=== PATIENT | male | born 1985 | race Caucasian/White ===

== ENCOUNTER 2017-01-17 19:33 | Emergency (ER) | payer OTHER ==
[~2017-01-17] VITALS: Ht 183.5 cm; Wt 72.6 kg
[~2017-01-17 19:33] MED LIST: ATIVAN1 MG ORAL; BENTYL10 MG ORAL; DONNATAL E16.2 MG/1 PO; DONNATAL E16.2 MG/2 PO; IBUPROFEN600 MG ORAL; LIDOCAINE VISC100 ML MT; LIDOCAINE VISC100 ML PO; LIDOCAINE VISCO20 ML *; LIDOCAINE VISCO20 ML PO; MAALOX MAXIMUM355 M1 PO; MYLANTA II30 ML GT; MYLANTA II30 ML ORAL; MYLANTA II30 ML PO; NKM; NORCO 5-325 TA1 EACH ORAL; OMEPRAZOLE40 M1 ORAL; RANITIDINE HCL150 MG ORAL; [UNRECOGNIZED DRUG - OTHER] PO
[2017-01-17 19:40] VITALS: BP 122/74
[2017-01-17 20:00] VITALS: BP 125/72
[2017-01-17 20:05] VITALS: BP 125/72
--- NOTE | 2017-01-18 15:27 | Emergency Room Report ---
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 No smoking, drugs, ETOH No history of asthma, COPD Multiple visits here for similar concern - strong history/concern for anxiety patient stating "just get me an EKG and I'm outta here..." Allergies: Coded Allergies: No Known Allergies (Unverified , 12/08/15) Patient History Past Medical History: none Past Surgical History: none Pertinent Family History: none Social History: Denies: smoking, alcohol use, drug use Immunizations: UTD Reviewed Nursing Documentation: PMH: Agreed, PSxH: Agreed Nursing Documentation-PMH Past Medical History: No History, Except For Hx Cardiac Problems: No Hx Hypertension: No Hx Pacemaker: No Hx Asthma: No Hx COPD: No Hx Diabetes: No Hx Cancer: No Hx Gastrointestinal Problems: Yes - Acid reflux Hx Dialysis: No Hx Neurological Problems: No Hx Cerebrovascular Accident: No Hx Seizures: No Review of Systems All Other Systems: negative except mentioned in HPI Physical Exam Vital Signs Date Time Temp Pulse Resp B/P (MAP) Pulse Ox O2 Delivery O2 Flow Rate FiO2 01/17/17 19:35 97.9 81 20 129/82 97 Room Air Sp02 EP Interpretation: reviewed, normal General Appearance: normal inspection, well appearing, no apparent distress, alert, GCS 15, non-toxic Head: normocephalic, atraumatic Eyes: bilateral eye PERRL, bilateral eye EOMI ENT: normal ENT inspection, hearing grossly normal, normal voice Neck: normal inspection, full range of motion, supple, no bony tend Respiratory: normal inspection, lungs clear, normal breath sounds, no respiratory distress, no retraction, no wheezing, chest symmetrical, palpation of chest normal Cardiovascular #1: regular rate, rhythm, no edema Gastrointestinal: normal inspection, normal bowel sounds, non tender, soft, no guarding, no hernia Genitourinary: no CVA tenderness Musculoskeletal: normal inspection, back normal, normal range of motion, Adan' s Sign negative Neurologic: normal inspection, alert, oriented x3, responsive, entry table operator III-XII nml as tested, motor strength/tone normal, speech normal Psychiatric: normal inspection, judgement/insight normal, mood/affect normal Skin: normal inspection, normal color, no rash Medical Decision Making Diagnostic Impression: Primary Impression: Chest pain Qualified Codes: R07.89 - Other chest pain ER Course Chest pain for 2-3 days No CAD risk factors Unlikely ACS or PE or dissection given well appearance, duration fo symptoms, no CAD risk factors ECG is NSR, no ischemia. Advised patient ECG is just a screening test and lab work/CXR would provide additional info for risk stratifying but patient refuses to stay for additional evaluation Advised to return for worsening concerning symptoms DC home EKG Diagnostic Results Rate: normal Rhythm: NSR ST Segments: no acute changes ASA given to the pt in ED: No Last Vital Signs Date Time Temp Pulse Resp B/P (MAP) Pulse Ox O2 Delivery O2 Flow Rate FiO2 01/17/17 20:05 98.1 74 15 125/72 100 Room Air Status: improved Disposition: HOME, SELF-CARE Condition: Improved Referrals: [facility]ERRIN (PCP) Patient Instructions: Nonspecific Chest Pain TERENCE VIVAR M.D. Jan 18, 2017 15:26
== END 2017-01-17 20:12 | disposition home or self-care (01) ==
LOC: EMR 20:11
DX: R07.89 Other chest pain (principal)
CPT/HCPCS: 93005; 99284

== ENCOUNTER 2017-04-15 15:15 | Emergency (ER) | payer OTHER ==
[~2017-04-15] VITALS: Ht 182.9 cm; Wt 72.6 kg
[2017-04-15] MEDS ORDERED: Dicyclomine HCl 10mg/5ml oral soln ORAL ONE (15:45)
[2017-04-15] MEDS ORDERED: Mylanta II UD 30ml ORAL ONE (15:45)
[2017-04-15] MEDS ORDERED: Lidocaine 2% Visc 15ml soln ORAL ONE (15:45)
[2017-04-15] MEDS ORDERED: PEPCID40 MG PO (16:34)
[2017-04-15] MEDS ORDERED: OMEPRAZOLE40 M1 ORAL (16:34)
--- NOTE | 2017-04-15 16:36 | Emergency Room Report ---
History of Present Illness General Chief Complaint: General Complaint Present Illness HPI 31 y/o male c/o acid reflux x 1 day. States he has a 4 year hx of acid reflux and he had a new onset of severe acid reflux last night and is requesting mylanta. States he has had multiple endoscopies in the past and was asymptomatic for the past 1 year. States sxs are worse with eating specific foods and has not taken anything for relief currently. Denies any current n/v/f /c/d, abd pain, back pain, neck pain, photophobia, phonophobia, CP, SOB or headache. Allergies: Coded Allergies: No Known Allergies (Unverified , 12/08/15) Patient History Past Medical History: see triage record Past Surgical History: none Pertinent Family History: none Immunizations: UTD Reviewed Nursing Documentation: PMH: Agreed, PSxH: Agreed Nursing Documentation-PMH Hx Cardiac Problems: No Hx Hypertension: No Hx Pacemaker: No Hx Asthma: No Hx COPD: No Hx Diabetes: No Hx Cancer: No Hx Gastrointestinal Problems: Yes - Acid reflux Hx Dialysis: No Hx Neurological Problems: No Hx Cerebrovascular Accident: No Hx Seizures: No Review of Systems All Other Systems: negative except mentioned in HPI Physical Exam Vital Signs Date Time Temp Pulse Resp B/P (MAP) Pulse Ox O2 Delivery O2 Flow Rate FiO2 04/15/17 15:17 97.9 104 20 114/74 99 Room Air Sp02 EP Interpretation: reviewed, normal General Appearance: no apparent distress, alert, GCS 15, non-toxic Head: normocephalic, atraumatic Eyes: bilateral eye normal inspection, bilateral eye PERRL ENT: hearing grossly normal, normal pharynx, no angioedema, normal voice Neck: full range of motion, supple/symm/no masses Respiratory: chest non-tender, lungs clear, normal breath sounds, speaking full sentences Cardiovascular #1: regular rate, rhythm, no edema Gastrointestinal: normal bowel sounds, non tender, soft, non-distended, no guarding, no rebound Musculoskeletal: back normal, gait/station normal, normal range of motion Neurologic: alert, oriented x3, responsive, motor strength/tone normal, sensory intact, speech normal Skin: normal color, no rash, warm/dry, well hydrated Medical Decision Making PA Attestation Dr. Rowe my supervising physician with whom patient management has been discussed with. Diagnostic Impression: Primary Impression: GERD (gastroesophageal reflux disease) Qualified Codes: K21.0 - Gastro-esophageal reflux disease with esophagitis ER Course Pt. presents to the ED c/o acid reflux Differential diagnosis includes appendicitis, [place], GERD, pancreatitis, allergic reaction, diverticulitis, gastroenteritis, abdominal hernia, pancreatitis, cholecystitis, nephrolithiasis, and testicular torsion. Vital signs: are WNL, pt. is afebrile H&PE are most consistent with GERD ORDERS: none required at this time, the diagnosis is clinical ED INTERVENTIONS: GI Cocktail with improvement of sxs. DISCHARGE: At this time pt. is stable for d/c to home. Will provide printed patient care instructions, and any necessary prescriptions. Care plan and follow up instructions have been discussed with the patient prior to discharge. Last Vital Signs Date Time Temp Pulse Resp B/P (MAP) Pulse Ox O2 Delivery O2 Flow Rate FiO2 04/15/17 15:17 97.9 104 20 114/74 99 Room Air Disposition: HOME, SELF-CARE Condition: Stable Scripts Famotidine (PEPCID) 40 Mg Tablet 40 MG PO DAILY, #14 TAB 0 Refills Prov: SABRY,TAMEEM P.A. 04/15/17 Omeprazole (OMEPRAZOLE) 40 Mg Capsule.dr 40 MG ORAL DAILY, #14 CAP Prov: SABALICIA,TAMEEM P.A. 04/15/17 Referrals: [facility],REFERRIN (PCP) Patient Instructions: Gastroesophageal Reflux Disease, Adult Additional Instructions: Take medication as directed. Patient instructed to stay well hydrated and to use a liquid diet and then progress to soft bland diet as tolerated before reverting back to a regular diet. Patient Education was given to the patient. Patient advised to return if symptoms do not improve or worsen over the past 4- 10 hours if irreretractible pain, rectal bleeding, or no BM to go to ER immediately. Advised patient to raise the head of your bed by 6 to 8 inches ( for example, by putting blocks of wood under 2 legs of the bed or a Styrofoam wedge under the mattress). Avoid foods that make your symptoms worse (examples include coffee, chocolate, alcohol, peppermint, and fatty foods). Cut down on the amount of alcohol you drink. Stop smoking, if you smoke. Eat a bunch of small meals each day, rather than 2 or 3 big meals. Avoid lying down for 3 hours after a meal Antacids and surface acting agents can relieve mild symptoms , but they work only for a short time. Histamine blockers are stronger and last longer than antacids and surface acting agents. You can buy antacids and most histamine blockers without a prescription. BEE LOPEZ Apr 15, 2017 16:36
[2017-04-15 16:50] VITALS: BP 125/80
== END 2017-04-15 16:50 | disposition home or self-care (01) ==
LOC: EMR 15:52
DX: K21.9 Gastro-esophageal reflux disease without esophagitis (principal)
CPT/HCPCS: 99284

== ENCOUNTER 2017-05-23 21:17 | Emergency (ER) | payer OTHER ==
[~2017-05-23] VITALS: Ht 182.9 cm; Wt 72.6 kg
[~2017-05-23 21:17] MED LIST changes: +PEPCID40 MG PO
[2017-05-23 21:35] VITALS: BP 119/75
[2017-05-23] MEDS ORDERED: LIDOCAINE VISCO20 ML PO (22:14)
[2017-05-23] MEDS ORDERED: MYLANTA II30 ML PO (22:14)
[2017-05-23] MEDS ORDERED: Dicyclomine HCl 10mg/5ml oral soln ORAL ONE (22:15)
[2017-05-23] MEDS ORDERED: Mylanta II UD 30ml ORAL ONE (22:15)
[2017-05-23] MEDS ORDERED: Lidocaine 2% Visc 15ml soln ORAL ONE (22:15)
[2017-05-23 22:28] VITALS: BP 119/75
--- NOTE | 2017-05-23 23:58 | Emergency Room Report ---
History of Present Illness General Chief Complaint: General Complaint Source: Patient Present Illness HPI 31YOM walk-in with throat burning/pain, states that its his "acid reflux" acting up. Requesting "GI Cocktail" Patient has been here many times prior for similar complaints - was given GI cocktail Rx as well Denies abd pain, nausea/vomiting, diarrhea Denies chest pain, SOB Deneis sick contacts Allergies: Coded Allergies: No Known Allergies (Unverified , 12/08/15) Patient History Past Medical History: GERD Past Surgical History: none Pertinent Family History: none Social History: Denies: smoking, alcohol use, drug use Immunizations: UTD Reviewed Nursing Documentation: PMH: Agreed, PSxH: Agreed Nursing Documentation-PMH Hx Cardiac Problems: No Hx Hypertension: No Hx Pacemaker: No Hx Asthma: No Hx COPD: No Hx Diabetes: No Hx Cancer: No Hx Gastrointestinal Problems: Yes - Acid reflux Hx Dialysis: No Hx Neurological Problems: No Hx Cerebrovascular Accident: No Hx Seizures: No Review of Systems All Other Systems: negative except mentioned in HPI Physical Exam Vital Signs Date Time Temp Pulse Resp B/P (MAP) Pulse Ox O2 Delivery O2 Flow Rate FiO2 05/23/17 21:27 97.3 66 16 119/75 97 Room Air Sp02 EP Interpretation: reviewed, normal General Appearance: normal inspection, well appearing, no apparent distress, alert, GCS 15, non-toxic Head: normocephalic, atraumatic Eyes: bilateral eye PERRL, bilateral eye EOMI ENT: normal ENT inspection, hearing grossly normal, normal pharynx, no angioedema, normal voice, TMs + canals normal, uvula midline, moist mucus membranes Neck: normal inspection, full range of motion, supple, thyroid normal, no meningismus, no bony tend Respiratory: normal inspection, lungs clear, normal breath sounds, no rhonchi, no respiratory distress, no retraction, no accessory muscle use, no wheezing, speaking full sentences Cardiovascular #1: regular rate, rhythm, no edema, no JVD, normal capillary refill Gastrointestinal: normal inspection, normal bowel sounds, non tender, soft, no mass, no peritonitis, non-distended, no guarding, no hernia, no pulsatile mass Genitourinary: no CVA tenderness Musculoskeletal: normal inspection, back normal, normal range of motion, no calf tenderness, pelvis stable, Adan's Sign negative Neurologic: normal inspection, alert, oriented x3, responsive, insecticide expert III-XII nml as tested, motor strength/tone normal, cerebellar normal, normal gait, speech normal Psychiatric: normal inspection, judgement/insight normal, mood/affect normal, no suicidal/homicidal ideation, no delusions Skin: normal inspection, normal color, no rash Lymphatic: normal inspection, no adenopathy Medical Decision Making Diagnostic Impression: Primary Impression: Dysphagia Qualified Codes: R13.10 - Dysphagia, unspecified ER Course Vital signs stable, afebrile Abdomen nonfocal Improve symptoms after GI cocktail including viscous lidocaine Is given prescription for viscous light on Maalox as requested advised PMD followup for GI referral for endoscopy given how many times he's been here for GERD, acid reflux ER course: Patient has remained stable during ED stay. Disposition: Patient is to be discharged to home. Prescriptions given are maalox, viscous lido Patient is instructed to follow up with their primary care doctor within 5 days. Strict return precautions discussed with patient such as fever, chills, worsening/severe pain, nausea, vomiting, which may indicate severe illness. Patient verbalizes understanding and agrees with plan. Please note that this Emergency Department Report was dictated using [employer] repairer technology software, occasionally this can lead to erroneous entry secondary to interpretation by the dictation equipment Last Vital Signs Date Time Temp Pulse Resp B/P (MAP) Pulse Ox O2 Delivery O2 Flow Rate FiO2 05/23/17 22:28 97.3 66 16 119/75 97 Room Air Status: improved Disposition: HOME, SELF-CARE Condition: Improved Scripts Lidocaine HCl 2% Viscous (Lidocaine HCl 2% Viscous) 100 Ml Solution 10 ML PO Q6HR Y for throat pain, #120 ML mix with water equal parts Prov: TERENCE VIVAR M.D. 05/23/17 Al Hydroxide/mg Hydroxide (Mag-Al Plus Suspension) 30 Ml Oral.susp 30 ML PO Q6HR, #420 ML Prov: TERENCE VIVAR M.D. 05/23/17 Patient Instructions: Dysphagia TERENCE VIVAR M.D. May 23, 2017 23:58
== END 2017-05-23 22:28 | disposition home or self-care (01) ==
LOC: EMR 21:40
DX: R13.10 Dysphagia, unspecified (principal); K21.9 Gastro-esophageal reflux disease without esophagitis
CPT/HCPCS: 99283

== ENCOUNTER 2017-07-12 06:21 | Emergency (ER) | payer OTHER ==
[~2017-07-12] VITALS: Ht 182.9 cm; Wt 72.6 kg
[2017-07-12] MEDS ORDERED: LIDOCAINE VISCO20 ML PO (06:37)
--- NOTE | 2017-07-12 06:44 | Emergency Room Report ---
History of Present Illness General Chief Complaint: General Complaint Present Illness HPI Patient is a 31-year-old male who presented after increased difficulty swallowing. Patient reports having increased tightness to his throat. Patient prior history of similar symptoms. Patient has multiple prior ER visits for similar symptoms. He has prior history of anxiety as well as as esophageal stricture. He denies any difficulty breathing or cough. He had not been vomiting. Allergies: Coded Allergies: No Known Allergies (Unverified , 12/08/15) Patient History Past Medical History: see triage record Reviewed Nursing Documentation: PMH: Agreed, PSxH: Agreed Nursing Documentation-PMH Hx Cardiac Problems: No Hx Hypertension: No Hx Pacemaker: No Hx Asthma: No Hx COPD: No Hx Diabetes: No Hx Cancer: No Hx Gastrointestinal Problems: Yes - Acid reflux Hx Dialysis: No Hx Neurological Problems: No Hx Cerebrovascular Accident: No Hx Seizures: No Review of Systems All Other Systems: negative except mentioned in HPI Physical Exam Vital Signs Date Time Temp Pulse Resp B/P (MAP) Pulse Ox O2 Delivery O2 Flow Rate FiO2 07/12/17 06:26 98.0 59 16 121/69 96 Room Air 98.1 General Appearance: well appearing, no apparent distress, alert, GCS 15 Head: normocephalic, atraumatic ENT: hearing grossly normal, normal voice Neck: full range of motion, supple Respiratory: no respiratory distress, speaking full sentences Musculoskeletal: no calf tenderness Neurologic: normal gait Psychiatric: mood/affect normal Skin: no rash Medical Decision Making Diagnostic Impression: Primary Impression: GERD (gastroesophageal reflux disease) ER Course Patient presented for throat discomfort. Differential diagnosis included was not limited to esophageal stricture, gastric cancer, reflux among others. Patient has a benign exam and does not appear to require any further imaging or laboratory testing at this time patient. patient was advised to follow-up with his GI physician. The patient is advised to follow up with primary care doctor in 1-2 days. Patient is advised to return if any worsening condition or if any changes in status that are concerning. This report is dictated with [employer] senior web engineer software which may occasionally lead to discrepancies related to use of this software. Last Vital Signs Date Time Temp Pulse Resp B/P (MAP) Pulse Ox O2 Delivery O2 Flow Rate FiO2 07/12/17 06:26 98.0 59 16 121/69 96 Room Air 98.1 Status: improved Disposition: HOME, SELF-CARE Condition: Stable Scripts Lidocaine HCl 2% Viscous (Lidocaine HCl 2% Viscous) 100 Ml Solution 10 ML PO Q6HR Y for throat pain, #120 ML mix with water equal parts Prov: Vladimir Shanks 07/12/17 Referrals: [facility],REFERRING (PCP) Patient Instructions: Dysphagia Vladimir Shanks Jul 12, 2017 06:44
[2017-07-12] MEDS ORDERED: Dicyclomine HCl 10mg/5ml oral soln ORAL ONE (06:45)
[2017-07-12] MEDS ORDERED: Lidocaine 2% Visc 15ml soln ORAL ONE (06:45)
[2017-07-12 06:46] VITALS: BP 120/68
[2017-07-12 06:48] VITALS: BP 120/68
== END 2017-07-12 06:48 | disposition home or self-care (01) ==
LOC: EMR 06:36
DX: K21.9 Gastro-esophageal reflux disease without esophagitis (principal)
CPT/HCPCS: 99283

== ENCOUNTER 2017-07-20 04:57 | Emergency (ER) | payer OTHER ==
[~2017-07-20] VITALS: Ht 182.9 cm; Wt 72.6 kg
[2017-07-20 05:10] VITALS: BP 116/78
[2017-07-20] MEDS ORDERED: PEPCID20 MG ORAL (05:19)
--- NOTE | 2017-07-20 05:19 | Emergency Room Report ---
History of Present Illness General Chief Complaint: Sore Throat Source: Patient Present Illness HPI Is a 31-year-old male with history of anxiety and reflux. He also claims he has strictures. He's been here numerous times for the same complaint. He usually come in and said that his throat was closing off and only a GI cocktail will help. When he tried Mylanta as an outpatient is not helping. No fever chills but no nausea no vomiting. Denies any other complaint. Similar symptoms in the past. No pain. No nausea no vomiting no diarrhea. Allergies: Coded Allergies: No Known Allergies (Unverified , 12/08/15) Patient History Past Medical History: see triage record, old chart reviewed Past Surgical History: other Pertinent Family History: none Social History: Denies: smoking Immunizations: other Reviewed Nursing Documentation: PMH: Agreed; PSxH: Agreed Nursing Documentation-PMH Hx Cardiac Problems: No Hx Hypertension: No Hx Pacemaker: No Hx Asthma: No Hx COPD: No Hx Diabetes: No Hx Cancer: No Hx Gastrointestinal Problems: Yes - Acid reflux Hx Dialysis: No Hx Neurological Problems: No Hx Cerebrovascular Accident: No Hx Seizures: No Review of Systems Eye: Denies: eye pain, blurred vision ENT: Denies: ear pain, nose congestion, throat swelling Respiratory: Denies: cough, shortness of breath Cardiovascular: Denies: chest pain, palpitations Gastrointestinal: Denies: abdominal pain, diarrhea, nausea, vomiting Musculoskeletal: Denies: back pain, joint pain Skin: Denies: rash Neurological: Denies: headache, numbness Endocrine: Denies: increased thirst, increased urine Hematologic/Lymphatic: Denies: easy bruising All Other Systems: negative except mentioned in HPI Physical Exam Vital Signs Date Time Temp Pulse Resp B/P (MAP) Pulse Ox O2 Delivery O2 Flow Rate FiO2 07/20/17 05:00 97.4 61 18 116/78 98 Room Air 97.3 vitals normal Sp02 EP Interpretation: reviewed, normal General Appearance: well appearing, no apparent distress, alert Head: normocephalic, atraumatic Eyes: bilateral eye PERRL, bilateral eye EOMI ENT: hearing grossly normal, normal pharynx Neck: full range of motion, supple, no meningismus Respiratory: chest non-tender, lungs clear, normal breath sounds Cardiovascular #1: regular rate, rhythm, no murmur Gastrointestinal: normal bowel sounds, non tender, no mass, no organomegaly, no bruit, non-distended Musculoskeletal: back normal, gait/station normal, normal range of motion Psychiatric: mood/affect normal Skin: warm/dry Medical Decision Making Diagnostic Impression: Primary Impression: Dysphagia Qualified Codes: R13.10 - Dysphagia, unspecified ER Course Patient presents with symptoms of dysphasia/reflux. I suspect this is more of a psychological issue rather than organic issue. We'll discharge home. No evidence of an acute abdomen. Last Vital Signs Date Time Temp Pulse Resp B/P (MAP) Pulse Ox O2 Delivery O2 Flow Rate FiO2 07/20/17 05:00 97.4 61 18 116/78 98 Room Air 97.3 Status: unchanged Disposition: HOME, SELF-CARE Condition: Stable Scripts Famotidine (PEPCID) 20 Mg Tablet 20 MG ORAL DAILY, #30 TAB 0 Refills Prov: BRAIN ARANDA M.D. 07/20/17 Additional Instructions: Follow-up with your DrBeverly in 7 days. Return if symptom worsen. BRAIN ARANDA M.D. Jul 20, 2017 05:19
[2017-07-20 05:27] VITALS: BP 116/78
== END 2017-07-20 05:25 | disposition home or self-care (01) ==
LOC: EMR 05:16
DX: R13.10 Dysphagia, unspecified (principal); K21.9 Gastro-esophageal reflux disease without esophagitis
CPT/HCPCS: 99283

== ENCOUNTER 2017-07-22 17:52 | Emergency (ER) | payer OTHER ==
[~2017-07-22] VITALS: Ht 182.9 cm; Wt 70.8 kg
[~2017-07-22 17:52] MED LIST changes: +PEPCID20 MG ORAL
--- NOTE | 2017-07-22 18:24 | Emergency Room Report ---
History of Present Illness General Chief Complaint: Chest Pain Source: Patient Present Illness HPI 31-year-old male presents to the emergency department requesting EKG and stating that he had episode of chest pain earlier today. Patient states that right now he isn't having the pain as bad as it was he reports that at approximately 2 in the morning he had 9 out of 10 in severity left-sided chest/ pectoral/shoulder pain. 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 Patient denies history of cardiac disease. Denies drug use denies recent travel denies shortness of breath or lower extremity swelling. He denies recent URI. Denies Palpitations, LOC, AMS, dizziness, Changes in Vision, Sensation, paresthesias , or a sudden severe headache. Allergies: Coded Allergies: No Known Allergies (Unverified , 12/08/15) Patient History Past Medical History: see triage record Past Surgical History: none Pertinent Family History: none Reviewed Nursing Documentation: PMH: Agreed; PSxH: Agreed Nursing Documentation-PMH Past Medical History: No History, Except For Hx Cardiac Problems: No Hx Hypertension: No Hx Pacemaker: No Hx Asthma: No Hx COPD: No Hx Diabetes: No Hx Cancer: No Hx Gastrointestinal Problems: Yes - Acid reflux Hx Dialysis: No Hx Neurological Problems: No Hx Cerebrovascular Accident: No Hx Seizures: No Review of Systems All Other Systems: negative except mentioned in HPI Physical Exam Vital Signs Date Time Temp Pulse Resp B/P (MAP) Pulse Ox O2 Delivery O2 Flow Rate FiO2 07/22/17 18:08 97.9 88 22 130/86 94 Room Air 97.9 Sp02 EP Interpretation: reviewed, normal General Appearance: no apparent distress, alert, GCS 15, non-toxic Head: normocephalic, atraumatic ENT: hearing grossly normal, normal voice Neck: full range of motion Respiratory: lungs clear, normal breath sounds, no respiratory distress, no accessory muscle use, no wheezing, speaking full sentences Cardiovascular #1: regular rate, rhythm, no edema Gastrointestinal: non tender, soft, non-distended Genitourinary: deferred Musculoskeletal: back normal, gait/station normal, normal range of motion, tender - mild ttp to Deep palpation of the left pectoral area. Neurologic: alert, oriented x3, responsive, motor strength/tone normal, sensory intact, speech normal, grossly normal Psychiatric: anxious, other - suspect psychological disorder. overly concerned about symptoms and repeating questions multiple times. Skin: normal color, warm/dry, well hydrated, rash - hyperpigmented plaquest on the anterior chest, not itchy. Medical Decision Making PA Attevation Dr. english is my supervising Physician whom patient management has been discussed with. Diagnostic Impression: Primary Impression: Chest wall pain Additional Impression: Anxiety ER Course 31-year-old male presents to the emergency department requesting EKG and stating that he had episode of chest pain earlier today. Patient states that right now he isn't having the pain as bad as it was he reports that at approximately 2 in the morning he had 9 out of 10 in severity left-sided chest/ pectoral/shoulder pain. 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 Patient denies history of cardiac disease. Denies drug use denies recent travel denies shortness of breath or lower extremity swelling. He denies recent URI. Denies Palpitations, LOC, AMS, dizziness, Changes in Vision, Sensation, paresthesias , or a sudden severe headache. Ddx considered but are not limited to DE, pneumonia, contusion, costochondritis , PE, ACS, Shoulder strain, Chest wall contusion. aortic dissection, pericarditis, anxiety. Review of this patient's chart shows that he regularly visits the ER for requests for EKG in addition to gastritis. Subsequent visits have been uneventful. It appears patient does not follow up with the primary care doctor I suspect psychological condition possibly hypochondriasis or drug use. Vital signs: are WNL, pt. is afebrile H&PE are most consistent with hypochondriasis/anxiety. will do EKG and Troponin to r/o emergent conditions. Pt. does not have cardiac RF's and multiple normal EKG's and testing done in ER in past. ORDERS: - EK NSR with ST changes possibly early repolarization nonspecific ST and T- wave abnormalities.--- Reviewed report of previous x-ray and shows early repolarization as well. -CMP: Unremarkable -CK-MB: WNL -CK: WNL -Troponin: 0.0 ED INTERVENTIONS: - Discussed EKG findings with patient and recommended blood work. Discussed with patient that no matter what he needs to follow-up with a communication spec as he reports to the emergency department frequently complaining of chest pain and asking for EKGs in addition to gastritis and always asking for lidocaine. -- I discussed With this patient that I recommend psychological evaluation. For anxiousness about his health. DISCHARGE: At this time pt. is stable for d/c to home. Will provide printed patient care instructions, and any necessary prescriptions. Care plan and follow up instructions have been discussed with the patient prior to discharge. Labs Test 07/22/17 19:05 Sodium Level 140 MMOL/L (136-145) Potassium Level 4.1 MMOL/L (3.5-5.1) Chloride Level 100 MMOL/L (98-107) Carbon Dioxide Level 33 MMOL/L (21-32) Anion Gap 7 mmol/L (5-15) Blood Urea Nitrogen 21 mg/dL (7-18) Creatinine 1.2 MG/DL (0.55-1.30) Estimat Glomerular Filtration Rate > 60 mL/min (>60) Glucose Level 95 MG/DL (74-106) Calcium Level 8.2 MG/DL (8.5-10.1) Total Creatine Kinase 136 U/L (26-308) Creatine Kinase MB 0.5 NG/ML (0.0-3.6) Creatine Kinase MB Relative Index 0.3 Troponin I 0.000 ng/mL (0.000-0.056) EKG Diagnostic Results EP Interpretation: Dr. sidhu Rate: normal - 71 BPM Rhythm: NSR ST Segments: other - non specific ST and T wave abnormalities. ASA given to the pt in ED: No PA Scribe Text This Interpretation was scribed by ALBER Robbins. Last Vital Signs Date Time Temp Pulse Resp B/P (MAP) Pulse Ox O2 Delivery O2 Flow Rate FiO2 07/22/17 18:08 97.9 88 22 130/86 94 Room Air 97.9 Disposition: HOME, SELF-CARE Condition: Stable Patient Instructions: Nonspecific Chest Pain Additional Instructions: Take any previously prescribed medications as directed. Follow up with a Primary Care Provider in 3-5 days, even if your symptoms have resolved. --Please review list of primary care clinics, if you do not already have a primary care provider Return sooner to ED if new symptoms occur, or current symptoms become worse. - Please note that this Emergency Department Report was dictated using [employer] manager interior design technology software, occasionally this can lead to erroneous entry secondary to interpretation by the dictation equipment. Sherrie Robbins Jul 22, 2017 18:24
[2017-07-22] MEDS ORDERED: NKM (18:35)
[2017-07-22 18:40] VITALS: BP 146/76
[2017-07-22 19:32] LABS: ANION GAP 7 mmol/L (5-15); BLOOD UREA NITROGEN 21 mg/dL (7-18); CALCIUM 8.2 MG/DL (8.5-10.1); CARBON DIOXIDE 33 MMOL/L (21-32); CHLORIDE 100 MMOL/L (98-107); CREATININE 1.2 MG/DL (0.55-1.30); POTASSIUM 4.1 MMOL/L (3.5-5.1); SODIUM 140 MMOL/L (136-145)
[2017-07-22 19:45] LABS: CKMB 0.5 NG/ML (0.0-3.6); CREATINE KINASE 136 U/L (26-308)
[2017-07-22 20:00] VITALS: BP 118/61
[2017-07-22 20:15] VITALS: BP 146/76
--- NOTE | 2017-07-24 18:14 | Cardiology Report ---
APPROVED REPORT EKG Measurement Heart [id number] Normal sinus rhythm with sinus arrhythmia ST elevation, consider early repolarization, pericarditis, or injury Nonspecific ST and T wave abnormality Abnormal ECG
== END 2017-07-22 20:15 | disposition home or self-care (01) ==
LOC: EMR 18:26
DX: R07.89 Other chest pain (principal); F41.9 Anxiety disorder, unspecified
CPT/HCPCS: 36415; 80048; 82550; 82553; 84484; 93005; 99283

== ENCOUNTER 2017-08-11 09:14 | Emergency (ER) | payer OTHER ==
[~2017-08-11] VITALS: Ht 182.9 cm; Wt 71.7 kg
[2017-08-11 09:42] VITALS: BP 143/82
[2017-08-11] MEDS ORDERED: PEPCID40 MG PO (09:45)
[2017-08-11] MEDS ORDERED: Lidocaine 2% Visc 15ml soln ORAL ONE (09:45)
[2017-08-11] MEDS ORDERED: Mylanta II UD 30ml ORAL ONE (09:45)
[2017-08-11] MEDS ORDERED: OMEPRAZOLE40 M1 ORAL (09:45)
[2017-08-11] MEDS ORDERED: ALUM-MAG HYDRO360 ML PO (09:45)
[2017-08-11 09:56] VITALS: BP 143/82
[2017-08-11] MEDS ORDERED: Dicyclomine HCl 10mg/5ml oral soln ORAL ONE (10:00)
--- NOTE | 2017-08-11 14:32 | Emergency Room Report ---
History of Present Illness General Chief Complaint: General Complaint Source: Patient Present Illness HPI Patient has a long history of gastritis. Patient has had multiple visits to emergency department. He is requesting GI cocktail. He states that he has bad gastritis again. He states that he does not take his Pepcid or Zantac because he doesn't think that it helped some. He has had endoscopies in the past and told that he might have gastritis. No other complaints are noted. No other modifying factors. No other associated signs and symptoms. No other complaints were noted. Allergies: Coded Allergies: No Known Allergies (Unverified , 12/08/15) Patient History Past Surgical History: none Pertinent Family History: none Social History: Denies: smoking, alcohol use, drug use Reviewed Nursing Documentation: PMH: Agreed; PSxH: Agreed Nursing Documentation-PMH Hx Cardiac Problems: No Hx Hypertension: No Hx Pacemaker: No Hx Asthma: No Hx COPD: No Hx Diabetes: No Hx Cancer: No Hx Gastrointestinal Problems: Yes - Acid reflux Hx Dialysis: No Hx Neurological Problems: No Hx Cerebrovascular Accident: No Hx Seizures: No Review of Systems All Other Systems: negative except mentioned in HPI Physical Exam Vital Signs Date Time Temp Pulse Resp B/P (MAP) Pulse Ox O2 Delivery O2 Flow Rate FiO2 08/11/17 09:20 97.6 58 17 143/82 98 Room Air 97.5 Sp02 EP Interpretation: reviewed, normal General Appearance: normal inspection, well appearing, no apparent distress, alert Head: atraumatic Eyes: bilateral eye normal inspection ENT: normal ENT inspection, hearing grossly normal, normal voice Neck: normal inspection, full range of motion, supple, no bony tend Respiratory: normal inspection, lungs clear, normal breath sounds, no respiratory distress, no retraction, no wheezing Cardiovascular #1: regular rate, rhythm, no edema Gastrointestinal: normal inspection, normal bowel sounds, soft, no guarding, no hernia, other - tender epigastrium Genitourinary: no CVA tenderness Musculoskeletal: normal inspection, back normal, normal range of motion Neurologic: normal inspection, alert, responsive, speech normal Psychiatric: normal inspection, judgement/insight normal, mood/affect normal Skin: normal inspection, normal color, no rash Medical Decision Making Diagnostic Impression: Primary Impression: GERD (gastroesophageal reflux disease) ER Course Patient presents to emergency department today complaining of abdominal discomfort. Differential considerations include gastritis, pancreatitis, cholecystitis is name a few. Patient's exam is consistent with gastric reflux. Patient was given a GI cocktail with significant improvement in symptoms. Patient was given a prescription for Pepcid and omeprazole. Recommend outpatient follow-up.Patient is advised to follow up with primary doctor in 2-3 days and return the emergency room for any worsening symptoms and as needed. Last Vital Signs Date Time Temp Pulse Resp B/P (MAP) Pulse Ox O2 Delivery O2 Flow Rate FiO2 08/11/17 09:56 97.6 58 17 143/82 98 Room Air 97.5 Status: improved Disposition: HOME, SELF-CARE Condition: Stable Scripts Mag Hydrox/Al Hydrox/Simeth (ALUM-MAG HYDROXIDE-SIMETH LIQ) 360 Ml Oral.susp 15 ML PO TID PRN for Pain Scale (3-5) for 7 Days, ML Prov: GINO OGDEN M.D. 08/11/17 Omeprazole (OMEPRAZOLE) 40 Mg Capsule.dr 40 MG ORAL DAILY for 14 Days, CAP Prov: GINO OGDEN M.D. 08/11/17 Famotidine (PEPCID) 40 Mg Tablet 40 MG PO DAILY, #14 TAB 0 Refills Prov: GINO OGDEN M.D. 08/11/17 Referrals: [facility],REFERRING (PCP) Patient Instructions: Gastritis, Adult, Gastroesophageal Reflux Disease, Adult GINO OGDEN M.D. Aug 11, 2017 14:32
== END 2017-08-11 09:57 | disposition home or self-care (01) ==
LOC: EMR 09:57
DX: K21.9 Gastro-esophageal reflux disease without esophagitis (principal)
CPT/HCPCS: 99284

== ENCOUNTER 2017-08-17 20:13 | Emergency (ER) | payer OTHER ==
[~2017-08-17] VITALS: Ht 182.9 cm; Wt 71.7 kg
[~2017-08-17 20:13] MED LIST changes: +ALUM-MAG HYDRO360 ML PO
[2017-08-17 20:30] VITALS: BP 119/74
[2017-08-17] MEDS ORDERED: Mylanta II UD 30ml ORAL ONE (20:30)
[2017-08-17] MEDS ORDERED: Lidocaine 2% Visc 15ml soln ORAL ONE (20:30)
[2017-08-17] MEDS ORDERED: Dicyclomine HCl 10mg/5ml oral soln ORAL ONE (20:30)
[2017-08-17] MEDS ORDERED: DICYCLOMIN10 MG/5 ML PO (20:51)
[2017-08-17] MEDS ORDERED: ALUM-MAG HYDRO360 ML PO (20:51)
[2017-08-17 20:54] VITALS: BP 119/74
--- NOTE | 2017-08-20 08:27 | Emergency Room Report ---
History of Present Illness General Chief Complaint: General Complaint Source: Patient, Medical Record Present Illness HPI 31-year-old male presents ED for evaluation. Complaining of throat tightness. Started yesterday. [place] [facility] [place] has been here multiple times for similar presentation. States he has "acid reflux" and states our GI cocktail helps him the most. States he has been to multiple doctors and multiple specialists for this. pain is sharp, 9 out of 10, nonradiating. Denies chest pain. Denies fevers or chills. Denies nausea or vomiting. No other aggravating relieving factors. Denies any other associated symptoms Allergies: Coded Allergies: No Known Allergies (Unverified , 12/08/15) Patient History Past Medical History: GERD Past Surgical History: none Pertinent Family History: none Social History: Denies: smoking, alcohol use, drug use Immunizations: UTD Reviewed Nursing Documentation: PMH: Agreed; PSxH: Agreed Nursing Documentation-PMH Past Medical History: No History, Except For Hx Cardiac Problems: No Hx Hypertension: No Hx Pacemaker: No Hx Asthma: No Hx COPD: No Hx Diabetes: No Hx Cancer: No Hx Gastrointestinal Problems: Yes - Acid reflux Hx Dialysis: No Hx Neurological Problems: No Hx Cerebrovascular Accident: No Hx Seizures: No Review of Systems All Other Systems: negative except mentioned in HPI Physical Exam Vital Signs Date Time Temp Pulse Resp B/P (MAP) Pulse Ox O2 Delivery O2 Flow Rate FiO2 08/17/17 20:19 97.5 65 16 119/74 97 Room Air 97.5 Sp02 EP Interpretation: reviewed, normal General Appearance: no apparent distress, alert, GCS 15, non-toxic Head: normocephalic, atraumatic Eyes: bilateral eye normal inspection, bilateral eye PERRL ENT: hearing grossly normal, normal pharynx, no angioedema, normal voice Neck: full range of motion, supple/symm/no masses Respiratory: chest non-tender, lungs clear, normal breath sounds, speaking full sentences Cardiovascular #1: regular rate, rhythm, no edema Cardiovascular #2: 2+ carotid (R), 2+ carotid (L), 2+ radial (R), 2+ radial (L) , 2+ dorsalis pedis (R), 2+ dorsalis pedis (L) Gastrointestinal: normal bowel sounds, non tender, soft, non-distended, no guarding, no rebound Rectal: deferred Genitourinary: normal inspection, no CVA tenderness Musculoskeletal: back normal, gait/station normal, normal range of motion, non- tender Neurologic: alert, oriented x3, responsive, motor strength/tone normal, sensory intact, speech normal Psychiatric: judgement/insight normal, memory normal, mood/affect normal, no suicidal/homicidal ideation Reflexes: 3+ bicep (R), 3+ bicep (L), 3+ tricep (R), 3+ tricep (L), 3+ knee (R) , 3+ knee (L) Skin: normal color, no rash, warm/dry, well hydrated Lymphatic: no adenopathy Medical Decision Making Diagnostic Impression: Primary Impression: GERD (gastroesophageal reflux disease) Qualified Codes: K21.9 - Gastro-esophageal reflux disease without esophagitis Additional Impression: Esophageal stricture ER Course Hospital Course 31-year-old male presents ED complaining of throat tightness differential diagnosis: gastritis, esophagitis, esophageal stricture Clinical course Patient placed on stretcher. On playground monitor. After initial history and physical I ordered GI cocktail Upon reassessment, patient states pain has improved. Patient declines further workup or imaging I feel this is a highly complex case requiring extensive working including EKG/ Rhythm strip, Xray/CT/US, Blood/urine lab work, repeat exams while in ED, and administration of strong opiates/narcotics for pain control, admission to hospital or close patient follow up. Diagnosis - GERD, esophageal stricture Stable and discharged to home with prescriptions for bentyl, maalox. Followup with PMD. Return to ED if symptoms recur or worsen Last Vital Signs Date Time Temp Pulse Resp B/P (MAP) Pulse Ox O2 Delivery O2 Flow Rate FiO2 08/17/17 20:54 97.5 64 16 119/74 97 Room Air 97.5 Status: improved Disposition: HOME, SELF-CARE Condition: Stable Scripts Dicyclomine HCl (Dicyclomine HCl) 10 Mg/5 Ml Solution 10 MG PO TID for 5 Days, ML Prov: Bang Rowe MD 08/17/17 Mag Hydrox/Al Hydrox/Simeth (ALUM-MAG HYDROXIDE-SIMETH LIQ) 360 Ml Oral.susp 15 ML PO TID PRN for Pain Scale (3-5) for 7 Days, ML Prov: Bang Rowe MD 08/17/17 Referrals: [facility],REFERRING (PCP) Patient Instructions: Bang Santana MD Aug 20, 2017 08:27
== END 2017-08-17 20:55 | disposition home or self-care (01) ==
LOC: EMR 20:37
DX: K21.9 Gastro-esophageal reflux disease without esophagitis (principal); K22.2 Esophageal obstruction
CPT/HCPCS: 99282

== ENCOUNTER 2017-08-30 06:43 | Emergency (ER) | payer OTHER ==
[~2017-08-30] VITALS: Ht 182.9 cm; Wt 71.7 kg
[~2017-08-30 06:43] MED LIST changes: +DICYCLOMIN10 MG/5 ML PO
[2017-08-30 07:16] VITALS: BP 135/98
--- NOTE | 2017-08-30 07:27 | Emergency Room Report ---
History of Present Illness General Chief Complaint: General Complaint Source: Patient Present Illness HPI 31-year-old healthy male Reports he wants dicyclomine because it helps his throat burning sensation he has had for 2 days He reports he had this multiple times and Bentyl is the only thing that helps He has tried omeprazole and ranitidine in the past He denies any skin rashes, shortness of breath, allergies, or obvious triggers He reports the last 2 days he felt this morning his throat This is typical of what he has had multiple times in the past He denies fevers, shortness of breath, abdominal pain, nausea, vomiting, any other complaints Allergies: Coded Allergies: No Known Allergies (Unverified , 12/08/15) Patient History Past Medical History: see triage record Reviewed Nursing Documentation: PMH: Agreed; PSxH: Agreed Nursing Documentation-PMH Past Medical History: No History, Except For Hx Cardiac Problems: No Hx Hypertension: No Hx Pacemaker: No Hx Asthma: No Hx COPD: No Hx Diabetes: No Hx Cancer: No Hx Gastrointestinal Problems: Yes - Acid reflux Hx Dialysis: No Hx Neurological Problems: No Hx Cerebrovascular Accident: No Hx Seizures: No Review of Systems All Other Systems: negative except mentioned in HPI Physical Exam Vital Signs Date Time Temp Pulse Resp B/P (MAP) Pulse Ox O2 Delivery O2 Flow Rate FiO2 08/30/17 07:10 97.5 59 16 135/98 100 Room Air 97.5 Sp02 EP Interpretation: reviewed, normal General Appearance: no apparent distress, alert, non-toxic Head: normocephalic Eyes: bilateral eye normal inspection, bilateral eye PERRL, bilateral eye EOMI ENT: normal ENT inspection, hearing grossly normal, normal pharynx, no angioedema, normal voice, moist mucus membranes Neck: normal inspection, full range of motion, supple, supple/symm/no masses Respiratory: chest non-tender, lungs clear, normal breath sounds, chest symmetrical, palpation of chest normal Cardiovascular #1: normal peripheral pulses, regular rate, rhythm Gastrointestinal: normal inspection, non tender, soft, no mass, no guarding, no rebound Rectal: deferred Genitourinary: normal inspection, no CVA tenderness Musculoskeletal: back normal, gait/station normal, normal range of motion, non- tender, no calf tenderness Neurologic: alert, responsive, dial screw assembler III-XII nml as tested, motor strength/tone normal, sensory intact, speech normal Psychiatric: judgement/insight normal, memory normal, mood/affect normal, no suicidal/homicidal ideation Skin: normal color, no rash, warm/dry, normal turgor Lymphatic: no adenopathy Medical Decision Making Reaction to Intervention: No change Diagnostic Impression: Primary Impression: Sore throat ER Course Patient with likely GERD However, conventional therapy has failed him according to his history Dicyclomine seems to work, so I'll write him a prescription Examination is completely unremarkable of his throat and remainder of physical exam as well Last Vital Signs Date Time Temp Pulse Resp B/P (MAP) Pulse Ox O2 Delivery O2 Flow Rate FiO2 08/30/17 07:16 97.5 16 135/98 100 Room Air 97.5 08/30/17 07:10 59 Status: unchanged Disposition: HOME, SELF-CARE Condition: Stable SHANDRA GOLDEN M.D August 30, 2017 07:27
[2017-08-30] MEDS ORDERED: DICYCLOMINE HCL10 MG PO (07:29)
[2017-08-30 07:40] VITALS: BP 135/98
[2017-08-30] MEDS ORDERED: DICYCLOMIN10 MG/5 M1 PO (07:51)
== END 2017-08-30 07:40 | disposition home or self-care (01) ==
LOC: EMR 07:35
DX: J02.9 Acute pharyngitis, unspecified (principal); K21.9 Gastro-esophageal reflux disease without esophagitis
CPT/HCPCS: 99282

== ENCOUNTER 2017-09-14 19:32 | Emergency (ER) | payer OTHER ==
[~2017-09-14] VITALS: Ht 182.9 cm; Wt 71.7 kg
[~2017-09-14 19:32] MED LIST changes: +DICYCLOMIN10 MG/5 M1 PO; +DICYCLOMINE HCL10 MG PO
[2017-09-14] MEDS ORDERED: Lidocaine 2% Visc 15ml soln ORAL ONE (20:00)
[2017-09-14] MEDS ORDERED: Dicyclomine HCl 10mg/5ml oral soln ORAL ONE (20:00)
[2017-09-14] MEDS ORDERED: Mylanta II UD 30ml ORAL ONE (20:00)
[2017-09-14] MEDS ORDERED: ADVANCED ANTAC355 ML ORAL (20:02)
--- NOTE | 2017-09-14 20:04 | Emergency Room Report ---
History of Present Illness General Chief Complaint: Sore Throat Source: Patient Present Illness HPI 31-year-old male patient presents ER complaining of sore throat and constriction. Patient reports history of similar symptoms. Patient requesting a GI cocktail because "it relieves his pain symptoms". Patient reports he has been seen by GI specialist and had multiple endoscopies performed. Patient denies fever, chest pain, shortness of breath. Patient denies other acute symptoms at this time. reports history of GERD. Denies vomiting. Allergies: Coded Allergies: No Known Allergies (Unverified , 12/08/15) Patient History Past Medical History: see triage record Reviewed Nursing Documentation: PMH: Agreed; PSxH: Agreed Nursing Documentation-PMH Hx Cardiac Problems: No Hx Hypertension: No Hx Pacemaker: No Hx Asthma: No Hx COPD: No Hx Diabetes: No Hx Cancer: No Hx Gastrointestinal Problems: Yes - Acid reflux Hx Dialysis: No Hx Neurological Problems: No Hx Cerebrovascular Accident: No Hx Seizures: No Review of Systems All Other Systems: negative except mentioned in HPI Physical Exam Vital Signs Date Time Temp Pulse Resp B/P (MAP) Pulse Ox O2 Delivery O2 Flow Rate FiO2 09/14/17 19:34 97.9 81 18 125/76 98 Room Air 97.9 Sp02 EP Interpretation: reviewed, normal General Appearance: well appearing, no apparent distress, alert, GCS 15, non- toxic Head: normocephalic, atraumatic ENT: hearing grossly normal, normal pharynx, no angioedema, normal voice, TMs + canals normal, uvula midline, moist mucus membranes, other - no tonsillar exudates, no pharyngeal erythema Neck: full range of motion Respiratory: lungs clear, normal breath sounds, no rhonchi, no respiratory distress, no accessory muscle use, no wheezing, speaking full sentences Cardiovascular #1: regular rate, rhythm, no edema Musculoskeletal: back normal, digits/nails normal, gait/station normal, normal range of motion, non-tender Neurologic: alert, oriented x3, responsive, motor strength/tone normal, sensory intact Psychiatric: mood/affect normal Medical Decision Making PA Attestation Dr. Ruggiero is my supervising Physician whom patient management has been discussed with. Diagnostic Impression: Primary Impression: Throat pain ER Course Pt presents to ED c/o throat pain. DDX considered but are not limited to pharyngitis, laryngitis, URI, peritonsillar abscess, tonsillitis, esophageal stricture.. Low suspicion for peritonsillar abscess, no neck stiffness, no hot potato voice , no stridor. Does not require imaging at this time. VITAL SIGNS are WNL, patient is afebrile. Ordered GI cocktail. ER COURSE: patient seen in ER multiple times for similar symptoms in the past. Informed patient needs to follow up with his PCP for further treatment of symptoms. patient states that he will "come back to ER as times" as he wants to. informed patient he needs to follow with his PCP for further diagnosis of underlying etiology, ER cannot continue to provide medications. Will provide Rx for Mylanta medication. Patient reports feeling better following administration of medication patient able tolerate by mouth fluids while in the ER, talking without difficulty, no stridor, okay for outpatient treatment. patient has history of GERD, denies vomiting or reflux at this time. patient on reflux symptoms. take Tylenol for pain. DISCHARGE: Rx provided for Mylanta Salt water gargles Tylenol for pain and fever symptoms At this time pt is stable for d/c to home. Patient is resting comfortably, in no acute distress, nontoxic appearing, talking without difficulty. Will provide with patient care instructions and any necessary prescriptions. Patient to take medication as instructed. Care plan and follow-up instructions provided. Patient questions asked and answered. Patient instructed to follow-up with primary care provider in 3 - 5 days. ER precautions given. Patient instructed to return to ER immediately for any new or worsening of symptoms including but not limited to intractable vomiting, difficulty breathing, inability to eat. - Please note that this Emergency Department Report was dictated using [employer] aides teacher technology software, occasionally this can lead to erroneous entry secondary to interpretation by the dictation equipment. Last Vital Signs Date Time Temp Pulse Resp B/P (MAP) Pulse Ox O2 Delivery O2 Flow Rate FiO2 09/14/17 19:34 97.9 81 18 125/76 98 Room Air 97.9 Disposition: HOME, SELF-CARE Condition: Stable Scripts Mag Hydrox/Al Hydrox/Simeth* (ADVANCED ANTACID LIQUID*) 355 Ml Oral.susp 30 ML ORAL FOUR TIMES A DAY, #355 ML Prov: Luis E Armas 09/14/17 Patient Instructions: Esophageal Stricture, Sore Throat Additional Instructions: Followup with primary care provider in 3 -5 days. ER cannot continue to provide refills of medications, need to be seen and managed by primary care provider. Salt water gargles Take Tylenol for pain and fever symptoms Drink plenty of water. Take medications as directed. Patient questions asked and answered. ER precautions given, patient instructed to return to ER immediately for any new or worsening of symptoms including but not limited to intractable vomiting, difficulty breathing, inability to eat. Luis E Armas September 14, 2017 20:04
[2017-09-14 21:07] VITALS: BP 125/76
[2017-09-14 21:10] VITALS: BP 125/76
== END 2017-09-14 20:03 | disposition home or self-care (01) ==
LOC: EMR 20:00
DX: R07.0 Pain in throat (principal); K21.9 Gastro-esophageal reflux disease without esophagitis
CPT/HCPCS: 99283

== ENCOUNTER 2017-09-26 15:04 | Emergency (ER) | payer OTHER ==
[~2017-09-26] VITALS: Ht 182.9 cm; Wt 71.7 kg
[~2017-09-26 15:04] MED LIST changes: +ADVANCED ANTAC355 ML ORAL
[2017-09-26] MEDS ORDERED: ADVANCED ANTAC355 ML ORAL (15:37)
[2017-09-26] MEDS ORDERED: DICYCLOMIN10 MG/5 ML PO (15:42)
[2017-09-26] MEDS ORDERED: Dicyclomine HCl 10mg/5ml oral soln ORAL ONE (15:45)
[2017-09-26] MEDS ORDERED: Mylanta II UD 30ml ORAL ONE (15:45)
[2017-09-26] MEDS ORDERED: Lidocaine 2% Visc 15ml soln ORAL ONE (15:45)
[2017-09-26 15:59] VITALS: BP 116/63
[2017-09-26 16:01] VITALS: BP 116/63
--- NOTE | 2017-09-28 14:24 | Emergency Room Report ---
History of Present Illness General Chief Complaint: Abdominal Pain Source: Patient Present Illness HPI 31-year-old male presents ED complaining of sore throat. Patient is well-known to [facility] and has been here multiple times for this complaint. Patient has history of esophageal stricture. patient is coming for a GI cocktail. States he is having difficulty swallowing. Pain is sharp, 8 out of 10, nonradiating. Denies chest pain or shortness of breath. Denies any difficulty breathing. Denies nausea or vomiting. No other aggravating or relieving factors. Denies any other associated symptoms Allergies: Coded Allergies: No Known Allergies (Unverified , 12/08/15) Patient History Past Medical History: GERD Past Surgical History: none Pertinent Family History: none Social History: Denies: smoking, alcohol use, drug use Immunizations: UTD Reviewed Nursing Documentation: PMH: Agreed; PSxH: Agreed Nursing Documentation-PMH Hx Cardiac Problems: No Hx Hypertension: No Hx Pacemaker: No Hx Asthma: No Hx COPD: No Hx Diabetes: No Hx Cancer: No Hx Gastrointestinal Problems: Yes - Acid reflux Hx Dialysis: No Hx Neurological Problems: No Hx Cerebrovascular Accident: No Hx Seizures: No Review of Systems All Other Systems: negative except mentioned in HPI Physical Exam Vital Signs Date Time Temp Pulse Resp B/P (MAP) Pulse Ox O2 Delivery O2 Flow Rate FiO2 09/26/17 15:33 97.3 71 20 116/63 96 Room Air 97.3 Sp02 EP Interpretation: reviewed, normal General Appearance: no apparent distress, alert, GCS 15, non-toxic Head: normocephalic, atraumatic Eyes: bilateral eye normal inspection, bilateral eye PERRL ENT: hearing grossly normal, normal pharynx, no angioedema, normal voice Neck: full range of motion, supple/symm/no masses Respiratory: chest non-tender, lungs clear, normal breath sounds, speaking full sentences Cardiovascular #1: regular rate, rhythm, no edema Cardiovascular #2: 2+ carotid (R), 2+ carotid (L), 2+ radial (R), 2+ radial (L) , 2+ dorsalis pedis (R), 2+ dorsalis pedis (L) Gastrointestinal: normal bowel sounds, non tender, soft, non-distended, no guarding, no rebound Rectal: deferred Genitourinary: normal inspection, no CVA tenderness Musculoskeletal: back normal, gait/station normal, normal range of motion, non- tender Neurologic: alert, oriented x3, responsive, motor strength/tone normal, sensory intact, speech normal Psychiatric: judgement/insight normal, memory normal, mood/affect normal, no suicidal/homicidal ideation Reflexes: 3+ bicep (R), 3+ bicep (L), 3+ tricep (R), 3+ tricep (L), 3+ knee (R) , 3+ knee (L) Skin: normal color, no rash, warm/dry, well hydrated Lymphatic: no adenopathy Medical Decision Making Diagnostic Impression: Primary Impression: Esophageal stricture ER Course Hospital Course 31 yo M presents to ED c/o throat tightness differential diagnosis: gastritis, achalasia, esophageal stricture Clinical course Patient placed on stretcher. 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 After initial history and physical I ordered GI cocktail Upon reassessment, patient states pain has improved. Patient has been here multiple times for similar presentation. Encourage GI follow-up as outpatient I feel this is a highly complex case requiring extensive working including EKG/ Rhythm strip, Xray/CT/US, Blood/urine lab work, repeat exams while in ED, and administration of strong opiates/narcotics for pain control, admission to hospital or close patient follow up. Diagnosis - esophageal stricture Stable and discharged to home with prescriptions for suzan Baldwinlanjenni. Followup with PMD. Return to ED if symptoms recur or worsen Last Vital Signs Date Time Temp Pulse Resp B/P (MAP) Pulse Ox O2 Delivery O2 Flow Rate FiO2 09/26/17 16:01 97.3 88 20 116/63 96 Room Air 97.3 Status: improved Disposition: HOME, SELF-CARE Condition: Stable Scripts Dicyclomine HCl (Dicyclomine HCl) 10 Mg/5 Ml Solution 10 MG PO TID for 5 Days, ML Prov: Bang Rowe MD 09/26/17 Mag Hydrox/Al Hydrox/Simeth* (ADVANCED ANTACID LIQUID*) 355 Ml Oral.susp 30 ML ORAL FOUR TIMES A DAY, #355 ML Prov: Bang Rowe MD 09/26/17 Referrals: [facility],REFERRING (PCP) Patient Instructions: Esophageal Stricture Bang Rowe MD Sep 28, 2017 14:24
== END 2017-09-26 16:00 | disposition home or self-care (01) ==
LOC: EMR 16:00
DX: K22.2 Esophageal obstruction (principal); K21.9 Gastro-esophageal reflux disease without esophagitis
CPT/HCPCS: 99284

== ENCOUNTER 2017-10-14 01:29 | Emergency (ER) | payer OTHER ==
[~2017-10-14] VITALS: Ht 182.9 cm; Wt 68.0 kg
--- NOTE | 2017-10-14 02:03 | Emergency Room Report ---
History of Present Illness General Chief Complaint: Sore Throat Source: Patient Present Illness HPI Patient presents requesting Bentyl. He is having trouble swallowing. Allergies: Coded Allergies: No Known Allergies (Unverified , 12/08/15) Nursing Documentation-PMH Hx Cardiac Problems: No Hx Hypertension: No Hx Pacemaker: No Hx Asthma: No Hx COPD: No Hx Diabetes: No Hx Cancer: No Hx Gastrointestinal Problems: Yes - Acid reflux Hx Dialysis: No Hx Neurological Problems: No Hx Cerebrovascular Accident: No Hx Seizures: No Physical Exam Vital Signs Date Time Temp Pulse Resp B/P (MAP) Pulse Ox O2 Delivery O2 Flow Rate FiO2 10/14/17 01:45 97.5 82 16 130/70 98 Room Air 97.5 Medical Decision Making Diagnostic Impression: Primary Impression: Achalasia Last Vital Signs Date Time Temp Pulse Resp B/P (MAP) Pulse Ox O2 Delivery O2 Flow Rate FiO2 10/14/17 02:12 97.5 16 130/70 98 Room Air 97.5 10/14/17 01:45 82 Status: unchanged Disposition: HOME, SELF-CARE Condition: Stable Scripts Dicyclomine HCl (Dicyclomine HCl) 10 Mg/5 Ml Solution 10 MG PO TID, #100 ML Prov: Maikol Skinner M.D. 10/14/17 Referrals: [facility],REFERRING (PCP) Maikol Skinner M.D. Oct 14, 2017 02:03
[2017-10-14] MEDS ORDERED: DICYCLOMIN10 MG/5 ML PO (02:04)
[2017-10-14 02:12] VITALS: BP 130/70
== END 2017-10-14 02:17 | disposition home or self-care (01) ==
LOC: EMR 01:50
DX: K22.0 Achalasia of cardia (principal); K21.9 Gastro-esophageal reflux disease without esophagitis
CPT/HCPCS: 99283

== ENCOUNTER 2017-10-17 06:13 | Emergency (ER) | payer OTHER ==
[~2017-10-17] VITALS: Ht 182.9 cm; Wt 71.7 kg
[2017-10-17 06:19] VITALS: BP 131/72
--- NOTE | 2017-10-17 06:57 | Emergency Room Report ---
History of Present Illness General Chief Complaint: Medication Refill Source: Patient, Medical Record Present Illness HPI Patient presents requesting prescription for Bentyl liquid Patient reports that he does not need the GI cocktail today However he feels his tightening is returning in his throat Is asking for Bentyl Denies any chest pain or shortness of breath denies any back or flank pain Patient reports that he just won a boxing match and was feeling better after that however reports and now he requires the medication Allergies: Coded Allergies: No Known Allergies (Unverified , 12/08/15) Patient History Past Medical History: see triage record Pertinent Family History: none Reviewed Nursing Documentation: PMH: Agreed; PSxH: Agreed Nursing Documentation-PMH Past Medical History: No History, Except For Hx Cardiac Problems: No Hx Hypertension: No Hx Pacemaker: No Hx Asthma: No Hx COPD: No Hx Diabetes: No Hx Cancer: No Hx Gastrointestinal Problems: Yes - Acid reflux Hx Dialysis: No Hx Neurological Problems: No Hx Cerebrovascular Accident: No Hx Seizures: No Review of Systems All Other Systems: negative except mentioned in HPI Physical Exam Vital Signs Date Time Temp Pulse Resp B/P (MAP) Pulse Ox O2 Delivery O2 Flow Rate FiO2 10/17/17 06:15 97.5 66 16 131/72 97 Room Air 97.5 Sp02 EP Interpretation: reviewed, normal General Appearance: well appearing, no apparent distress Head: normocephalic, atraumatic Eyes: bilateral eye PERRL, bilateral eye EOMI ENT: normal pharynx Musculoskeletal: normal inspection Neurologic: alert, oriented x3 Skin: normal color, no rash Lymphatic: no adenopathy Medical Decision Making Diagnostic Impression: Primary Impression: Encounter for medication refill Additional Impression: Drug addiction ER Course Upon review of medical records Patient was recently written a prescription for Bentyl through the emergency room Patient reports that he received 120 mL He is at this time also requesting 120 mL And reports that if I'm not able to give him 120 mL of Bentyl did not bother writing a prescription Upon discussion regarding primary care Patient reports that he is given a prescription once a month by his primary physician Upon discussion further patient presents to the emergency room 2-3 times per month for prescription of Bentyl I discussed with him the concern that I have with this Patient extremely agitated 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 And essentially left prior to discharge paperwork Last Vital Signs Date Time Temp Pulse Resp B/P (MAP) Pulse Ox O2 Delivery O2 Flow Rate FiO2 10/17/17 06:19 97.5 16 131/72 97 Room Air 97.5 10/17/17 06:15 66 Status: unchanged Disposition: HOME, SELF-CARE Condition: Stable Additional Instructions: There is extreme concern regarding this patient's multiple presentations for prescription refill. This is on top of his report of receiving medication on a monthly basis by his primary physician. He is encouraged to follow up closely by his primary physician. Emergency room staff is also encouraged to review medical record and discuss the need for medication refill prior to prescription in ED Christy Ruggiero DO Oct 17, 2017 06:57
== END 2017-10-17 06:55 | disposition home or self-care (01) ==
LOC: EMR 06:55
DX: Z76.0 Encounter for issue of repeat prescription (principal); F19.20 Other psychoactive substance dependence, uncomplicated
CPT/HCPCS: 99282

== ENCOUNTER 2017-10-19 11:07 | Emergency (ER) | payer OTHER ==
[~2017-10-19] VITALS: Ht 182.9 cm; Wt 71.7 kg
--- NOTE | 2017-10-19 11:22 | Emergency Room Report ---
History of Present Illness General Chief Complaint: Medication Refill Source: Patient Present Illness HPI Patient presents requesting a refill of Bentyl liquid. I saw the patient 10/14 and gave him 100 mils. He's used that up and returned 2 days later requesting another Rx. The doctor evaluated him refused to fill the prescription at that time. He states that he couldn't sleep because of spasms in of his esophagus. The patient suffers from achalasia. He also has anxiety. At this point he complains of 10/10 pain. Patient denies any fevers or chills, vomiting, melena, dysuria, SI or HI. No risk factors for cardiac disease. Most recent w/u negative. Review of labs with near normal renal function in past and normal H/H. Please see my note from 10/14 and the note 10/17. 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 Nursing Documentation: PMH: Agreed; PSxH: Agreed Nursing Documentation-PMH Past Medical History: No History, Except For Hx Cardiac Problems: No Hx Hypertension: No Hx Pacemaker: No Hx Asthma: No Hx COPD: No Hx Diabetes: No Hx Cancer: No Hx Gastrointestinal Problems: Yes - Acid reflux Hx Dialysis: No Hx Neurological Problems: No Hx Cerebrovascular Accident: No Hx Seizures: No Review of Systems All Other Systems: negative except mentioned in HPI Physical Exam Vital Signs Date Time Temp Pulse Resp B/P (MAP) Pulse Ox O2 Delivery O2 Flow Rate FiO2 10/19/17 11:12 97.3 78 18 140/95 98 Room Air 97.3 Sp02 EP Interpretation: reviewed, normal General Appearance: no apparent distress, alert, GCS 15, thin, other - sallo Head: normocephalic, atraumatic Eyes: bilateral eye normal inspection, bilateral eye PERRL ENT: hearing grossly normal, normal voice, moist mucus membranes Neck: full range of motion, supple Respiratory: no respiratory distress, speaking full sentences Cardiovascular #1: normal inspection, regular rate, rhythm Cardiovascular #2: 2+ radial (L) Gastrointestinal: normal inspection, non tender, soft, scaphoid Musculoskeletal: digits/nails normal, gait/station normal, normal range of motion Neurologic: alert, oriented x3, normal gait, grossly normal Psychiatric: other - pressuring for medication Skin: no rash, pallor, other - sallo Medical Decision Making Diagnostic Impression: Primary Impression: Achalasia Additional Impressions: Drug-seeking behavior GERD (gastroesophageal reflux disease) Qualified Codes: K21.9 - Gastro-esophageal reflux disease without esophagitis ER Course Patient presents with spasms of his esophagus. He is requesting more Bentyl. The patient will be treated with a GI cocktail at this time. He'll be reevaluated after this is given. No imaging studies indicated. Patient states no better after GI cocktail. But wants Rx for liquid Bentyl. Pressuring for this. I stated he had abused the Rx I had given him by finishing 100 mls in 2 days. I insisted that he go to his GI specialist and told him I would not fill more Bentyl for him after today. He agreed to do this. Patient stable for outpatient observation and treatment. Last Vital Signs Date Time Temp Pulse Resp B/P (MAP) Pulse Ox O2 Delivery O2 Flow Rate FiO2 10/19/17 13:10 97.3 80 18 136/90 98 Room Air 207.1 Status: improved Disposition: HOME, SELF-CARE Condition: Improved Scripts Dicyclomine Hcl* (DICYCLOMINE HCL*) 10 Mg Capsule 10 MG PO Q8HR, #10 CAP Prov: Maikol Skinner M.D. 10/19/17 Maikol Skinner M.D. Oct 19, 2017 11:22
[2017-10-19] MEDS ORDERED: Dicyclomine HCl 10mg/5ml oral soln ONE (11:25)
[2017-10-19] MEDS ORDERED: Lidocaine 2% Visc 15ml soln ONE (11:26)
[2017-10-19] MEDS ORDERED: Mylanta II UD 30ml ONE (11:26)
[2017-10-19] MEDS ORDERED: Dicyclomine HCl 10mg/5ml oral soln ORAL ONE (11:30)
[2017-10-19] MEDS ORDERED: Mylanta II UD 30ml ORAL ONE (11:30)
[2017-10-19] MEDS ORDERED: Lidocaine 2% Visc 15ml soln ORAL ONE (11:30)
[2017-10-19] MEDS ORDERED: DICYCLOMINE HCL10 MG PO (13:05)
[2017-10-19 13:10] VITALS: BP 136/90
== END 2017-10-19 13:09 | disposition home or self-care (01) ==
LOC: EMR 11:59
DX: K22.0 Achalasia of cardia (principal); Z76.5 Malingerer [conscious simulation]; K21.9 Gastro-esophageal reflux disease without esophagitis
CPT/HCPCS: 99283

== ENCOUNTER 2018-02-04 17:58 | Emergency (ER) | payer OTHER ==
[~2018-02-04] VITALS: Ht 182.9 cm; Wt 72.6 kg
[2018-02-04 18:06] VITALS: BP 130/95
--- NOTE | 2018-02-04 18:24 | Emergency Room Report ---
History of Present Illness General Chief Complaint: Sore Throat Source: Patient, Medical Record (Luis E Armas) Present Illness HPI 32-year-old male patient presents to ER complaining of sore throat. Patient is well-known to this ER, has been here several times in the past for similar complaints. Patient is requesting a GI cocktail without Bentyl, states mental is no longer working for him. Reports his doctor has been out of town for "a long long time" and somewhat able to see him. Denies fever, chest pain, shortness of breath, vomiting. (Luis E Armas) Allergies: Coded Allergies: No Known Allergies (Unverified , 02/04/18) Patient History Past Medical History: see triage record Reviewed Nursing Documentation: PMH: Agreed; PSxH: Agreed (Luis E Armas) Nursing Documentation-PMH Past Medical History: No History, Except For Hx Cardiac Problems: No Hx Hypertension: No Hx Pacemaker: No Hx Asthma: No Hx COPD: No Hx Diabetes: No Hx Cancer: No Hx Gastrointestinal Problems: Yes - Acid reflux Hx Dialysis: No Hx Neurological Problems: No Hx Cerebrovascular Accident: No Hx Seizures: No (Luis E Armas) Review of Systems All Other Systems: negative except mentioned in HPI (Luis E Armas) Physical Exam Vital Signs Date Time Temp Pulse Resp B/P (MAP) Pulse Ox O2 Delivery O2 Flow Rate FiO2 02/04/18 18:01 99.0 86 15 130/95 95 Room Air 99.0 Sp02 EP Interpretation: reviewed, normal General Appearance: well appearing, no apparent distress, alert, GCS 15, non- toxic Head: normocephalic, atraumatic Eyes: bilateral eye normal inspection, bilateral eye PERRL ENT: hearing grossly normal, normal pharynx, no angioedema, normal voice, uvula midline, moist mucus membranes Neck: full range of motion Respiratory: lungs clear, normal breath sounds, no rhonchi, no respiratory distress, no accessory muscle use, no wheezing, speaking full sentences Cardiovascular #1: regular rate, rhythm, no edema Genitourinary: no CVA tenderness Musculoskeletal: back normal, digits/nails normal, gait/station normal, normal range of motion, non-tender Psychiatric: mood/affect normal (Chanda,Luis E P.A.) Medical Decision Making PA Attestation Dr. Ruggiero is my supervising Physician whom patient management has been discussed with. (Luis E Armas) Medicare Attestation Please refer to the note I have seen the patient and agree with the disposition and interaction Patient has been notified on multiple occasions including myself that dispensing of this medication is inappropriate patient however continues to present to the emergency room Patient has also had multiple refills of Ativan medication by his scoop filler and he is directed to her for continued refills of this medication (Christy Ruggiero DO) Diagnostic Impression: Primary Impression: Sore throat ER Course Pt. presents to the ED requesting prescription refill for sore throat. Multiple differentials were considered. Vital signs: are WNL, pt. is afebrile ORDERS: PE benign informed patient that cannot continue to report to the ER for prescription refills, he needs to follow up outpatient with his PCP and followup with specialist to discuss medication use for throat symptoms. Consult with Dr. Ruggiero, agrees with assessment and treatment plan. Informed patient ER cannot provide refills in the future; followup, management and prescription of long-term medications must be performed by primary care provider. DISCHARGE: At this time pt is stable for d/c to home. Patient is resting comfortably, in no acute distress, nontoxic appearing, talking without difficulty. Patient to take medications as instructed Will provide with patient care instructions and any necessary prescriptions. Care plan and follow-up instructions provided. Patient instructed to follow-up with primary care provider in 3 - 5 days. Patient questions asked and answered. Patient reports understanding and agreement to treatment plan. ER precautions given. Patient instructed to return to ER immediately for any new or worsening of symptoms including but not limited to increasing SOB, persistent fever. - Please note that this Emergency Department Report was dictated using [employer] toxicology technology software, occasionally this can lead to erroneous entry secondary to interpretation by the dictation equipment. (Luis E Armas) Last Vital Signs Date Time Temp Pulse Resp B/P (MAP) Pulse Ox O2 Delivery O2 Flow Rate FiO2 02/04/18 18:06 99.0 86 15 130/95 95 Room Air 99.0 (Luis E Armas) Disposition: HOME, SELF-CARE Condition: Stable Patient Instructions: Sore Throat Additional Instructions: Followup with primary care provider in 3 -5 days. Salt water gargles Take Tylenol for pain and fever symptoms Drink plenty of water. Take medications as directed. Patient questions asked and answered. ER precautions given, patient instructed to return to ER immediately for any new or worsening of symptoms including but not limited to intractable vomiting, difficulty breathing, inability to eat. Luis E Armas Feb 04, 2018 18:24 Christy Ruggiero DO Feb 04, 2018 18:25
[2018-02-04 18:27] VITALS: BP 130/95
== END 2018-02-04 18:27 | disposition home or self-care (01) ==
LOC: EMR 18:20
DX: J02.9 Acute pharyngitis, unspecified (principal); K21.9 Gastro-esophageal reflux disease without esophagitis
CPT/HCPCS: 99282

== ENCOUNTER 2018-06-29 20:14 | Emergency (ER) | payer OTHER ==
[~2018-06-29] VITALS: Ht 182.9 cm; Wt 77.1 kg
[2018-06-29 20:25] VITALS: BP 123/77
--- NOTE | 2018-06-29 20:25 | NUR ---
ED Nurse Note: Patient walk in c/o swollen and painful left hand for 1 day. Patient states he was punching a boxing bag yesterday. Patient reports 10/10 pain.
[2018-06-29 21:20] VITALS: BP 123/77
--- NOTE | 2018-06-29 21:20 | NUR ---
ER DISCHARGE NOTE: Patient is cleared to be discharged per ERMD, pt is aox4, on room air, with stable vital signs. pt was given dc instructions, pt was able to verbalize understanding, pt id band removed. pt is able to ambulate with steady gait. pt took all belongings.
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
--- NOTE | 2018-06-30 10:10 | Diagnostic Imaging Report ---
Indication: Pain, trauma Technique: 3 views left hand Comparison: none Findings: There is a fracture deformity which appears old of the fifth phalangeal head. There are degenerative changes of the fifth distal interphalangeal joint. No acute fractures. No dislocations. The remaining joint spaces are preserved. There are slight degenerative proliferative changes of the distal radioulnar joint. Impression: Old fifth middle phalangeal fracture deformity with underlying degenerative change No acute bony trauma
== END 2018-06-29 21:40 | disposition home or self-care (01) ==
LOC: EMR 20:58
DX: S60.222A Contusion of left hand, initial encounter (principal); W21.89XA Striking against or struck by other sports equipment, initial encounter; Y93.71 Activity, boxing; Y92.89 Other specified places as the place of occurrence of the external cause; K21.9 Gastro-esophageal reflux disease without esophagitis
CPT/HCPCS: 99283

== ENCOUNTER 2019-09-21 21:01 | Emergency (ER) | payer OTHER ==
[~2019-09-21] VITALS: Ht 182.9 cm; Wt 81.6 kg
[2019-09-21] MEDS ORDERED: ATIVAN1 MG ORAL (21:16)
--- NOTE | 2019-09-21 21:20 | NUR ---
ED Nurse Note: Pt walked into ED from home for c/o L knee pain s/p fall one week ago. Pt states he was walking his dog last week and fell and landed on L knee. Pt is aaox4, no cardiac or respiratory distress noted. Pt is ambulatory with steady gait.
--- NOTE | 2019-09-21 21:25 | NUR ---
ED Nurse Note: Pt denies head trauma or LOC when he fell.
[2019-09-21] MEDS ORDERED: IBUPROFEN600 M1 ORAL (22:06)
--- NOTE | 2019-09-21 22:13 | Emergency Room Report ---
History of Present Illness General Chief Complaint: Lower Extremity Injury Source: Patient Present Illness HPI Disclaimer: Please note that this report is being documented using [employer] technology. This can lead to erroneous entry secondary to incorrect interpretation by the dictating instrument. HPI: 33-year-old male presents for evaluation of left knee pain. 1 week ago he was accidentally pulled by his dog while walking falling onto his left side. Noted pain without significant swelling. He has an aching sensation around the whole knee that radiates into the middle part of the atkins. Still able to ambulate. Has been applying ice, compressive bandage and taking Excedrin. Denies numbness, tingling or weakness. No other injury sustained. Allergies: Coded Allergies: No Known Allergies (Unverified , 02/04/18) COVID-19 Screening Contact w/high risk pt: No Recent Travel to affected area: No Experienced COVID-19 symptoms?: No COVID-19 Testing performed [employer]: No Nursing Documentation-PMH Hx Cardiac Problems: No Hx Hypertension: No Hx Pacemaker: No Hx Asthma: No Hx COPD: No Hx Diabetes: No Hx Cancer: No Hx Gastrointestinal Problems: Yes - Acid reflux Hx Dialysis: No History Of Psychiatric Problem: Yes - panic attacks Hx Neurological Problems: No Hx Cerebrovascular Accident: No Hx Seizures: No Review of Systems All Other Systems: negative except mentioned in HPI Physical Exam Vital Signs Date Time Temp Pulse Resp B/P (MAP) Pulse Ox O2 Delivery O2 Flow Rate FiO2 09/21/19 21:09 98.4 63 20 125/85 (98) 98 Room Air General: Awake and alert, no acute distress HEENT: NC/AT. EOMI. Resp: Normal work of breathing Skin: Intact. No abrasions, laceration or rash over the exposed skin MSK: Normal tone and bulk. Moving all extremities. No obvious deformity. Left talus anatomic position mildly tender to palpation. There is some tenderness palpation over the medial lateral aspect without significant edema, no skin breakdown. Able to flex and extend. No varus or valgus laxity. No laxity on anterior posterior drawer testing. Neuro: Awake and alert. Mentating appropriately. Sensation intact over the left lower extremity. Medical Decision Making Diagnostic Impression: Primary Impression: Knee pain ER Course 33-year-old male presents for evaluation of left knee pain after a fall 1 week ago. X-ray was ordered and found no evidence of fracture dislocation subluxation. Likely a contusion. Patient was placed in an Primo wrap and will continue using NSAIDs and ice. Advised to refrain from strenuous physical activity until fully healed. Discussed reasons to return to the emergency department need to follow-up with PMD. He understands and agrees with treatment plan. Other X-Ray Diagnostic Results Other X-Ray Diagnostic Results : X-Ray ordered: Left knee # of Views/Limited Vs Complete: 3 View Indication: Pain EP Interpretation: Yes Interpretation: no dislocation, no soft tissue swelling, no fractures Impression: No acute disease Electronically Signed by: Electronically signed by Dr. Scotty Fontanez Last Vital Signs Date Time Temp Pulse Resp B/P (MAP) Pulse Ox O2 Delivery O2 Flow Rate FiO2 09/21/19 21:09 98.4 63 20 125/85 (98) 98 Room Air Disposition: HOME, SELF-CARE Condition: Stable Scripts Ibuprofen* (MOTRIN*) 600 Mg Tablet 600 MG ORAL Q6H PRN for For Pain, #30 TAB 0 Refills Prov: Scotty Fontanez MD 09/21/19 Patient Instructions: Knee Pain Additional Instructions: Please follow-up with your primary care doctor in the next 1 to 3 days to discuss this emergency department visit and for reevaluation. If you have any new or worsening symptoms please return to the emergency department for reevaluation. Please note that this report is being documented using [email or web address] technology. This can lead to erroneous entry secondary to incorrect interpretation by the dictating instrument. Scotty Fontanez MD September 21, 2019 22:13
[2019-09-21 22:15] VITALS: BP 122/75
--- NOTE | 2019-09-21 22:15 | NUR ---
ER DISCHARGE NOTE: Patient is cleared to be discharged per ERMD, pt is aox4, on room air, with stable vital signs. pt was given dc and prescription instructions, pt was able to verbalize understanding, pt id band removed. pt is able to ambulate with steady gait. pt took all belongings.
--- NOTE | 2019-09-22 10:58 | Diagnostic Imaging Report ---
EXAM: X-RAY XRAY Knee 3v LT CLINICAL HISTORY: Trauma with knee pain. COMPARISON: None FINDINGS: Total of 3 views of the left knee were obtained. Alignment is anatomic. There is no fracture, bony lesions or erosions. Joint spaces are unremarkable. Surrounding soft tissue is normal. IMPRESSION: NO FRACTURE P
== END 2019-09-21 22:15 | disposition home or self-care (01) ==
LOC: EMR 21:34
DX: M25.562 Pain in left knee (principal); W01.0XXA Fall on same level from slipping, tripping and stumbling without subsequent striking against object, initial encounter; Y93.K1 Activity, walking an animal; Y92.9 Unspecified place or not applicable; K21.9 Gastro-esophageal reflux disease without esophagitis
CPT/HCPCS: 73562; Z7502; 99283